=== PATIENT | female | born 1965 | race Caucasian/White ===

== ENCOUNTER 2018-10-05 10:55 | Observation (INO) ==
[2018-10-05] MEDS ORDERED: ASPIRIN CHEW 324 MG PO STA (11:51)
[2018-10-05 11:56] LABS: Basophils # (auto) 0.04 K/uL (0-0.2); Basophils % (auto) 0.5 %; Eosinophils # (auto) 0.04 K/uL (0-0.5); Eosinophils % (auto) 0.5 %; Hematocrit (blood only) 40.3 % (37-47); Hemoglobin 13.8 g/dL (12.0-16.0); Immature Granulocytes # (auto) 0.02 K/uL (0.00-0.02); Immature Granulocytes % (auto) 0.2 %; Lymphocytes # (auto) 1.49 K/uL (1.2-3.4); Lymphocytes % (auto) 18.3 %; Mean Corpuscular Hgb Conc 34.2 g/dL (32-36); Mean Corpuscular Volume 97.6 fL (80-100); Monocytes # (auto) 0.51 K/uL (0.11-0.59); Monocytes % (auto) 6.3 %; Neutrophils # (auto) 6.02 K/uL (1.4-6.5); Neutrophils % (auto) 74.2 %; Platelet Count 329 K/uL (130-400); RDW Coefficient of Variation 13.4 % (11.5-14.5); RDW Standard Deviation 47.9 fL (36.4-46.3); Red Blood Count 4.13 M/uL (4.2-5.4); White Blood Count 8.12 K/uL (4.8-10.8)
[2018-10-05 12:08] LABS: Alanine Aminotransferase 22 U/L (12-78); Albumin Level 4.1 gm/dl (3.4-5.0); Aspartate Aminotransferase 22 U/L (15-37); BUN Creatinine Ratio 9.5 (10-20); Blood Urea Nitrogen 8 mg/dl (7-18); Calcium 8.9 mg/dl (8.5-10.1); Carbon Dioxide 23 mmol/L (21-32); Chloride 111 mmol/L (98-107); Est GFR (African American) 95.4; Est GFR (Non-African American) 82.3; Glucose 158 mg/dl (70-99); Partial Thromboplastin Ratio 0.8; Partial Thromboplastin Time 22.2 Seconds (21.0-31.0); Potassium 3.5 mmol/L (3.5-5.1); Prothrombin Time 10.5 Seconds (9.0-12.0); Sodium 143 mmol/L (136-145)
--- NOTE | 2018-10-05 12:08 | XRay Report ---
SINGLE VIEW CHEST CLINICAL HISTORY: Dyspnea. FINDINGS: 2 AP, portable, upright chest radiographs are obtained. No prior studies are available for comparison at the time of dictation. The examination is degraded by portable technique and patient ro tation. The cardiomediastinal silhouette is unremarkable. The lungs and pleural spaces are clear. No pneumothorax is seen. The bony thorax is grossly intact. IMPRESSION: No active disease in the chest. Electronically signed by: Ganesh Fox M.D. 10/05/2018 12:06 PM
[2018-10-05 12:13] LABS: Albumin Globulin Ratio 1.2 (0.9-2); Alkaline Phosphatase 44 U/L (45-117); Globulin 3.4 gm/dl (2.5-4.0); Total Protein 7.5 gm/dl (6.4-8.2); Troponin I < 0.015 ng/ml (0-0.045)
[2018-10-05 12:55] LABS: D Dimer < 190 ug/L FEU (0-500)
--- NOTE | 2018-10-05 15:18 | History & Physical Report ---
Date of Service October 05, 2018 Assessment & Plan (1) Shortness of breath: (2) Chest pressure: This is a 53yo F with a PMH of atrial arrhythmia and tobacco use who presents after an episode of shortness of breath and chest pressure earlier today. -R/o ACS; risk factors include tobacco use -Most likely anxiety induced, also with underlying atrial arrhythmia -Initial troponin negative -EKG-history of non-specific ST changes in inferior leads, T wave inversion in lateral leads (per old OSH records). No new findings in today's EKG -CXR-no acute process -Trend serial cardiac enzymes -Check 2D echo -Repeat EKG in am (3) Atrial arrhythmia: Normal sinus rhythm on EKG now -Monitor on telemetry -Recommended following up with transfer car operator Dr. Segundo for out-patient cardiac monitoring (4) Tobacco use: Advised smoking cessation DVT Ppx: Early ambulation, elvira schwab Code status: FULL PCP: Yury Dispo: Observation med/tele. Plan to return home once medically stable. Patient seen in collaboration with Dr. Patel. Please see addendum. History of Present Illness Chief Complaint: shortness of breath, chest pressure Primary Care Provider: Abdelrahman Cotton MD This is a 53yo F with a PMH of atrial arrhythmia and tobacco use who presents after an episode of shortness of breath and chest pressure earlier today. 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 [place] anxious and like she was going to pass out, so she pulled over car. [place] like heart was pounding. Episode continued for 40 minutes. Has experienced episodes like this in the past but not to this severity or duration. Denies history of panic attacks but has taken ativan in the past for anxiety. Denies any diaphoresis, nausea, abdominal pain or syncope. Works out daily and had used Metatical machine this morning without issue. Has history of atrial arrhythma that was diagnosed years ago. Was seen at the time by an print washer transfer car operator in the past and was told she has an atrial arryythmia-not A Fib or WPW. Established care with Dr. Segundo transfer car operator in [place] a few years ago and had a normal echo. Was told that the next step was wearing a pvc monitor for 2 weeks but has not done this yet. No history of CAD, PR or DVT/PE. Smokes 4 cigarettes a day. No fever, chills, dizziness, nausea, vomiting, dysuria, diarrhea or lower extremity edema. Allergies Allergy/AdvReac Type Severity Reaction Status Date / Time mold AdvReac Difficulty Unverified 10/05/18 12:18 Breathing Home Medications Home Medications Medication Instructions Recorded Confirmed Type multivitamin 1 cap PO QAM 10/05/18 10/05/18 History Past Med/Surg History Medical History Tobacco use (Chronic) Atrial arrhythmia (Chronic) Surgical History History of ureter repair (Resolved) Family History Father Atrial fibrillation Social History Preferred Language: German Current Living Situation: Family current occupational status: employed Feels Safe at Home: Yes Smoking Status: Light tobacco smoker Hx Alcohol Use: Yes Review of Systems All systems reviewed & are unremarkable except as noted in HPI & below Physical Exam Vital Signs (Past 24 Hours): Last Vital Signs Pulse 65 10/05/18 15:17 Resp 16 10/05/18 15:17 BP 111/72 10/05/18 15:17 Pulse Ox 99 10/05/18 15:17 Physical Exam: General Appearance: WD/WN, no apparent distress, thin, + anxious Head: normocephalic, atraumatic Eyes: normal inspection, PERRL, EOMI ENT: hearing grossly normal, pharynx normal (moist mucous membranes) Neck: supple, no JVD, no adenopathy Respiratory/Chest: lungs clear to auscultation. No wheezes, rales or rhonci. No respiratory distress or accessory muscle use Cardiovascular: regular rate, rhythm, no murmur, normal peripheral pulses Abdomen/GI: normal bowel sounds, soft, non-tender to palpation Extremities/Musculoskelatal: normal inspection, no calf tenderness, normal capillary refill, no pedal edema Neurologic/Psych: alert, normal mood/affect, oriented x 3 Skin: normal color, warm/dry Results & Data Laboratory Results Short CBC 10/05/18 Range/Units 11:40 WBC 8.12 (4.8-10.8) K/uL Hgb 13.8 (12.0-16.0) g/dL Hct 40.3 (37-47) % Plt Count 329 (130-400) K/uL BMP 10/05/18 11:40 Sodium 143 Potassium 3.5 Chloride 111 H Carbon Dioxide 23 BUN 8 Creatinine 0.82 Glucose 158 H Calcium 8.9 Cardiac Enzymes 10/05/18 Range/Units 11:40 Troponin I < 0.015 (0-0.045) ng/ml Liver Function 10/05/18 Range/Units 11:40 Total Bilirubin 1.0 (0.2-1) mg/dl AST 22 (15-37) U/L ALT 22 (12-78) U/L Alkaline Phosphatase 44 L (45-117) U/L Albumin 4.1 (3.4-5.0) gm/dl Diagnostic Findings CXR: IMPRESSION: No active disease in the chest. Supervising Physician Co-Signing Physician Notes I have seen and examined the patient with physician registrar assistant and agree with the assessment and plan as above and would like to comment that workup to date in the ED and telemetry downs has not revealed cause of earlier described symptoms of chest pressure, shortness of breath, and sensation of palpitations. Currently in normal sinus rhythm. Plans have been made to continue telemetry monitoring and serial troponins. will have echocardiogram while in the hospital in addition to plans and medical issues as documented by physician registrar assistant, will also check TSH and give potassium 40 meq as potassium level is 3.5 which is low normal reference range On physical Exam General: no acute distress, thin woman Lungs: breathing on room air, no wheezing Heart: regular rate Abdomen: soft, nontender, positive bowel sounds Extremities: no edema
[2018-10-05] MEDS ORDERED: NITROGLYCERIN SL 0.4 MG/TAB TAB SL PRN (16:34)
[2018-10-05] MEDS ORDERED: POLYETHYLENE (MIRALAX) 17 GM PACK PO PRN (16:34)
[2018-10-05] MEDS ORDERED: ACETAMINOPHEN 325 MG TAB PO PRN (16:34)
[2018-10-05] MEDS ORDERED: ONDANSETRON INJ 2 MG/ML 2 ML VIAL IV PRN (16:34)
--- NOTE | 2018-10-05 16:47 | Emergency Department Note ---
Entered by Josef Lehman acting as a scribe for Davey Ng DO History of Present Illness General Chief complaint: Shortness of Breath/Dyspnea Stated complaint: CAN'T BREATH Source: patient History of Present Illness Provider complaint: shortness of breath Onset (ago): week(s) 1 Location: chest Severity: similar to prior episodes (4 times in past 18 years) Pain Consistency: + other (waxing and waning) Quality: + other (shortness of breath) Associated symptoms: + denies other symptoms (abdominal pain, diarrhea); no chest pain and no nausea/vomiting The patient is a 53 year old female who presents to the Emergency Room with complaints of shortness of breath that started about a week ago. The patient reports that his symptoms wax and wane. She states that she was able to use the elliptical today with no problem, but then states when she took her son onto campus she was unable to catch her breath and felt as though she was going to pass out. She further reports tingling in both of her hands. She denies any chest pain, nausea, vomiting, diarrhea, or abdominal pain. The patient reports a history of an arrhythmia. She denies a history of afib. She reports that this has happened approximately 4 times in the past 18 years. She denies having high blood pressure or diabetes. The patient admits to using tobacco. Home Medications Home Medications Medication Instructions Recorded Confirmed Type multivitamin 1 cap PO QAM 10/05/18 10/05/18 History Allergies Allergy/AdvReac Type Severity Reaction Status Date / Time mold AdvReac Difficulty Unverified 10/05/18 12:18 Breathing Past Med/Surg History Medical History Tobacco use (Chronic) Atrial arrhythmia (Chronic) Surgical History History of ureter repair (Resolved) Family History Father Atrial fibrillation Social History Preferred Language: Armenian Current Living Situation: Family current occupational status: employed Feels Safe at Home: Yes Smoking Status: Light tobacco smoker Hx Alcohol Use: Yes Review of Systems See HPI for pertinent positives & negatives. and A total of 10 systems reviewed and were otherwise negative Physical Exam Vital Signs Vital Signs - 24 hr 10/05/18 10:58 10/05/18 11:21 10/05/18 11:43 Temperature Temperature Source Sepsis Recent Fever Within 48 Hours No Sepsis New/Unexplained Change in Mental Status No Sepsis Action Taken by Nursing No Action Required Pulse Rate 110 H 95 H Pulse Rate [Finger] 98 H Pulse Rhythm Regular Pulse Rhythm [Finger] Pulse Strength Normal Pulse Strength [Finger] Respiratory Rate 36 H Respiratory Effort / Characteristics Non-Labored Spontaneous Respiratory Depth Normal Respiratory Pattern Blood Pressure 127/69 Blood Pressure [Left Arm] Blood Pressure [Right Arm] 138/90 Blood Pressure Mean 88 Blood Pressure Mean [Left Arm] Blood Pressure Mean [Right Arm] 106 Blood Pressure Position Sitting Blood Pressure Position [Left Arm] Pulse Oximetry 100 100 100 Oxygen Delivery Method Room Air Room Air Room Air 10/05/18 12:23 10/05/18 15:17 10/05/18 15:58 Temperature Temperature Source Sepsis Recent Fever Within 48 Hours Sepsis New/Unexplained Change in Mental Status Sepsis Action Taken by Nursing Pulse Rate Pulse Rate [Finger] 85 65 65 Pulse Rhythm Pulse Rhythm [Finger] Pulse Strength Pulse Strength [Finger] Respiratory Rate 20 16 17 Respiratory Effort / Characteristics Respiratory Depth Respiratory Pattern Blood Pressure Blood Pressure [Left Arm] Blood Pressure [Right Arm] 111/72 115/70 Blood Pressure Mean Blood Pressure Mean [Left Arm] Blood Pressure Mean [Right Arm] 85 85 Blood Pressure Position Blood Pressure Position [Left Arm] Pulse Oximetry 100 99 99 Oxygen Delivery Method Room Air Room Air Room Air 10/05/18 16:38 Temperature 36.6 C Temperature Source Oral Sepsis Recent Fever Within 48 Hours Sepsis New/Unexplained Change in Mental Status Sepsis Action Taken by Nursing Pulse Rate Pulse Rate [Finger] 68 Pulse Rhythm Pulse Rhythm [Finger] Regular Pulse Strength Pulse Strength [Finger] Normal Respiratory Rate 18 Respiratory Effort / Characteristics Non-Labored Respiratory Depth Normal Respiratory Pattern Regular Blood Pressure Blood Pressure [Left Arm] 136/86 Blood Pressure [Right Arm] Blood Pressure Mean Blood Pressure Mean [Left Arm] 102 Blood Pressure Mean [Right Arm] Blood Pressure Position Blood Pressure Position [Left Arm] Lying Pulse Oximetry 98 Oxygen Delivery Method Room Air GENERAL: Sitting up in bed, alert, anxious and disheveled appearing, well nourished, no distress, non-toxic EYE EXAM: normal conjunctiva. PERRL and EOM's grossly intact. OROPHARYNX: no exudate, no erythema, lips, buccal mucosa, and tongue normal and mucous membranes are moist NECK: supple, no nuchal rigidity, no adenopathy, non-tender LUNGS: Clear to auscultation. Normal chest wall mechanics HEART: no murmurs, S1 normal and S2 normal ABDOMEN: abdomen soft, non-tender, normo-active bowel, sounds, no masses, no rebound or guarding. BACK: Back is symmetrical on inspection and there is no deformity, no midline tenderness, no CVA tenderness. SKIN: no rashes and no bruising UPPER EXTREMITIES: upper extremities are grossly normal. LOWER EXTREMITIES: No pitting edema. Calves equal bilaterally. NEURO EXAM: Normal sensorium, cranial nerves II-XII grossly intact, normal speech, no gross weakness of arms, no gross weakness of legs. Course ED COURSE: Vital signs were reviewed and showed the patient is normotensive. The patients medical record was reviewed The above diagnostic studies were performed and reviewed. ED treatments and interventions as stated above. 1140: The patient was evaluated in room C2A. A complete history and physical examination was performed. 1347: I updated the patient. 1354: I reviewed the patient's case with Keyla Ruth PA-C. She will evaluate the patient for further management. 1400: Upon reevaluation, the patient is resting comfortably. I discussed my findings with the patient and she understands and agrees with the treatment plan. Based on the patients age, coexisting illnesses, exam and lab findings the decision to treat as an inpatient was made. The patient remained stable while under my care. The patient will be evaluated for further management. Consultations Consultation #1: Keyla Ruth PA-C Time: 13:54 Administered Medications Discontinued Medications Aspirin (Aspirin) 324 mg PO NOW STA Stop: 10/05/18 11:52 Last Admin: 10/05/18 12:22 Dose: 324 mg Documented by: [id number] Medical Decision Making Differential Diagnosis Differential diagnosis: Etiologies such as infections, reactive airway disease, pneumonia, pneumothorax, COPD, CHF, cardiac ischemia, pulmonary embolism, musculoskeletal, gastrointestinal, as well as others were entertained. Medical Records Attestation: I reviewed the patient's medical records. Home Medications Current Medication List: was personally reviewed by me Laboratory Data Attestation: I reviewed the patient's lab results. Result diagrams: 10/05/18 11:40 10/05/18 11:40 Lab Results 10/05/18 10/05/18 10/05/18 Range/Units 11:40 11:40 11:40 WBC 8.12 (4.8-10.8) K/uL RBC 4.13 L (4.2-5.4) M/uL Hgb 13.8 (12.0-16.0) g/dL Hct 40.3 (37-47) % MCV 97.6 (80-100) fL MCH 33.4 (25-34) pg MCHC 34.2 (32-36) g/dL RDW Std Deviation 47.9 H (36.4-46.3) fL RDW Coeff of Devan 13.4 (11.5-14.5) % Plt Count 329 (130-400) K/uL MPV 10.0 (7.4-10.4) fL Immature Gran % (Auto) 0.2 % Neut % (Auto) 74.2 % Lymph % (Auto) 18.3 % Swain % (Auto) 6.3 % Eos % (Auto) 0.5 % Baso % (Auto) 0.5 % Immature Gran # (Auto) 0.02 (0.00-0.02) K/uL Neut # (Auto) 6.02 (1.4-6.5) K/uL Lymph # (Auto) 1.49 (1.2-3.4) K/uL Swain # (Auto) 0.51 (0.11-0.59) K/uL Eos # (Auto) 0.04 (0-0.5) K/uL Baso # (Auto) 0.04 (0-0.2) K/uL PT 10.5 (9.0-12.0) Seconds INR 1.0 (0.9-1.1) APTT 22.2 (21.0-31.0) Seconds PTT Ratio 0.8 D-Dimer (0-500) ug/L FEU Sodium 143 (136-145) mmol/L Potassium 3.5 (3.5-5.1) mmol/L Chloride 111 H (98-107) mmol/L Carbon Dioxide 23 (21-32) mmol/L Anion Gap 10.0 (3-11) BUN 8 (7-18) mg/dl Creatinine 0.82 (0.6-1.2) mg/dl Est Cr Clr Drug Dosing Not Reportable Est GFR ( Amer) 95.4 Est GFR (Non-Af Amer) 82.3 BUN/Creatinine Ratio 9.5 L (10-20) Glucose 158 H (70-99) mg/dl Calcium 8.9 (8.5-10.1) mg/dl Magnesium (1.8-2.4) mg/dl Total Bilirubin 1.0 (0.2-1) mg/dl AST 22 (15-37) U/L ALT 22 (12-78) U/L Alkaline Phosphatase 44 L (45-117) U/L Troponin I < 0.015 (0-0.045) ng/ml Total Protein 7.5 (6.4-8.2) gm/dl Albumin 4.1 (3.4-5.0) gm/dl Globulin 3.4 (2.5-4.0) gm/dl Albumin/Globulin Ratio 1.2 (0.9-2) 10/05/18 10/05/18 Range/Units 11:40 11:40 WBC (4.8-10.8) K/uL RBC (4.2-5.4) M/uL Hgb (12.0-16.0) g/dL Hct (37-47) % MCV (80-100) fL MCH (25-34) pg MCHC (32-36) g/dL RDW Std Deviation (36.4-46.3) fL RDW Coeff of Devan (11.5-14.5) % Plt Count (130-400) K/uL MPV (7.4-10.4) fL Immature Gran % (Auto) % Neut % (Auto) % Lymph % (Auto) % Swain % (Auto) % Eos % (Auto) % Baso % (Auto) % Immature Gran # (Auto) (0.00-0.02) K/uL Neut # (Auto) (1.4-6.5) K/uL Lymph # (Auto) (1.2-3.4) K/uL Swain # (Auto) (0.11-0.59) K/uL Eos # (Auto) (0-0.5) K/uL Baso # (Auto) (0-0.2) K/uL PT (9.0-12.0) Seconds INR (0.9-1.1) APTT (21.0-31.0) Seconds PTT Ratio D-Dimer < 190 (0-500) ug/L FEU Sodium (136-145) mmol/L Potassium (3.5-5.1) mmol/L Chloride (98-107) mmol/L Carbon Dioxide (21-32) mmol/L Anion Gap (3-11) BUN (7-18) mg/dl Creatinine (0.6-1.2) mg/dl Est Cr Clr Drug Dosing Est GFR ( Amer) Est GFR (Non-Af Amer) BUN/Creatinine Ratio (10-20) Glucose (70-99) mg/dl Calcium (8.5-10.1) mg/dl Magnesium 2.2 (1.8-2.4) mg/dl Total Bilirubin (0.2-1) mg/dl AST (15-37) U/L ALT (12-78) U/L Alkaline Phosphatase (45-117) U/L Troponin I (0-0.045) ng/ml Total Protein (6.4-8.2) gm/dl Albumin (3.4-5.0) gm/dl Globulin (2.5-4.0) gm/dl Albumin/Globulin Ratio (0.9-2) Imaging Data Radiologist's Impression: Radiology results as stated below per my review and the radiologist's interpretation: SINGLE VIEW CHEST CLINICAL HISTORY: Dyspnea. FINDINGS: 2 AP, portable, upright chest radiographs are obtained. No prior studies are available for comparison at the time of dictation. The examination is degraded by portable technique and patient rotation. The cardiomediastinal silhouette is unremarkable. The lungs and pleural spaces are clear. No pneumothorax is seen. The bony thorax is grossly intact. IMPRESSION: No active disease in the chest. Electronically signed by: Ganesh Fox M.D. 10/05/2018 12:06 PM ECG Data Attestation: I personally reviewed and interpreted this ECG as follows: Indication: SOB/dyspnea Rate (beats per minute): 88 Rhythm: sinus rhythm Findings: + other (normal axis, ME interval), + Q waves (septal Q waves in lateral short leads) and + ST depression (in inferior leads) Blood Pressure Blood Pressure Findings: Normal blood pressure Blood Pressure Disposition: did not require urgent referral MDM Narrative Patient is a 53-year-old female who presents the ER for shortness of breath times 1 week which is been getting worse with exertion. She also complains of tingling in bilateral hands. There is no focal deficit. She does not have any chest pain. She does have a history of a previous cardiac arrhythmia but is unsure to which it is. I do question WPW with a short ME but patient notes that is not the case and it is neither A. fib or a flutter. IV was established and labs were obtained and shows no significant leukocytosis or anemia. INR is unremarkable. D-dimer was negative. BMP was unremarkable along with bilirubin LFTs and troponin. EKG did have slightly new findings with worsening ST wave changes in the carrier leads along with T wave flattening in the lateral leads in comparison to her previous EKG which is obtained from her scale adjuster. Ches t x-ray was unremarkable. Patient was given fluids. She was updated bedside. Patient was also given oral aspirin. She was updated and discussed with hospitalist for further evaluation. She was updated bedside as well. Of note she was extremely anxious. Impression & Plan Shortness of breath, Acute electrocardiogram changes Discharge Plan Visit Data *Final* Discharge Date/Time: 10/05/18 16:14 Chief Complaint: Shortness of Breath/Dyspnea Stated Complaint: CAN'T BREATH ED Provider: Davey Ng Discharge Problem: Shortness of breath, Acute electrocardiogram changes Patient Disposition: Admitted As Inpatient Discharge Instructions Interventions: ED Discharge Assessment Last Done: 10/05/18 16:14 The scribe's documentation has been prepared under my direction and personally reviewed by me in its entirety. I confirm that the note above accurately reflects all work, treatment, procedures, and medical decision making performed by me.
[2018-10-05] MEDS ORDERED: POTASSIUM CHLORIDE 20 MEQ TABCR PO STA (17:15)
[2018-10-05 18:35] LABS: Troponin I < 0.015 ng/ml (0-0.045)
[2018-10-06] MEDS ORDERED: ALBUT/IPRATROP 3MG/0.5MG NEB 3 ML VIAL NEB PRN (05:11)
[2018-10-06] MEDS ORDERED: LORazepam 0.25 MG/0.5 ML VIAL IV PRN (05:14)
[2018-10-06 06:03] LABS: Hematocrit (blood only) 37.8 % (37-47); Hemoglobin 12.8 g/dL (12.0-16.0); Mean Corpuscular Hgb Conc 33.9 g/dL (32-36); Mean Platelet Volume 9.9 fL (7.4-10.4); Platelet Count 275 K/uL (130-400); RDW Coefficient of Variation 13.6 % (11.5-14.5); RDW Standard Deviation 49.4 fL (36.4-46.3); Red Blood Count 3.82 M/uL (4.2-5.4); White Blood Count 6.15 K/uL (4.8-10.8)
[2018-10-06 06:32] LABS: BUN Creatinine Ratio 13.9 (10-20); Calcium 8.3 mg/dl (8.5-10.1); Creatinine Clr Calc Pharmacy 86.7 ml/min; Est GFR (African American) 117.1; Est GFR (Non-African American) 101.1
[2018-10-06 07:22] LABS: Estimated Average Glucose 100 mg/dl; Hemoglobin A1C 5.1 % (4.5-5.6)
[2018-10-06] MEDS ORDERED: MULTIVITAMIN TAB PO SCH (09:00)
[2018-10-06] MEDS ORDERED: ACETAMINOPHEN 325 MG TAB PO PRN (09:37)
[2018-10-06] MEDS ORDERED: SODIUM CHLORIDE 0.9% 1000ML 1,000 ML IV SCH (09:45)
--- NOTE | 2018-10-06 10:42 | XRay Report ---
XR chest 1V portable CLINICAL HISTORY: Shortness of breath. COMPARISON STUDY: Chest radiograph October 05, 2018. FINDINGS: Lung volumes are normal. There is no pneumothorax or pleural effusion. There is no consolid ation. Cardiac size is normal. Mediastinal contours are normal. There is no evidence for pulmonary ed wing. IMPRESSION: No acute cardiopulmonary findings. Electronically signed by: Sony Campbell M.D. 10/06/2018 10:41 AM
[2018-10-06] MEDS ORDERED: LORazepam 0.5 MG TAB PO PRN (16:26)
--- NOTE | 2018-10-06 17:39 | Hospitalist Progress Note ---
Date of Service October 06, 2018 Assessment & Plan (1) Shortness of breath: Initial hospital presentation complaint of chest pressure with shortness of breath had one episode of shortness of breath while in the hospital around 4:30 AM. bradycardia on telemetry noted at night (2) Chest pressure: patient had telemetry monitoring in the hospital that noted bradycardia sometimes as low as the 40s, troponins negative, resting echocardiogram with normal Ejection Fraction of 55 to 60%. Patient had stress test for which the cardiology doctor reports there was a short run of supraventricular tachycardia briefly on initial stress which resolved and then some bigeminy post test but the stress test was otherwise normal (3) Atrial arrhythmia: History of reported atrial arrhythmia patient had telemetry monitoring in the hospital that noted bradycardia sometimes as low as the 40s, troponins negative, resting echocardiogram with normal Ejection Fraction of 55 to 60%. Patient had stress test for which the car diology doctor reports there was a short run of supraventricular tachycardia briefly on initial stress which resolved and then some bigeminy post test but the stress test was otherwise normal Patient was evaluated by cardiology service, Dr.Sheldon Solis (who also has outpatient clinics [facility] at [address] [place] [address] ) is trying to schedule a 14 day ZIO monitor and also requested that patient be scheduled for Cardiology Electrophysiology referral with Dr. Angeli Ogden on 10/28/18 Anxiety Patient express concerns that she becomes more anxious with anxiety when feeling previously reported chest and breathing symptoms [place] PDMP was checked an patient last prescription of Lorazepam filled in 12/18/2017 and does not have any other active outpatient controlled substances Patient may take prescription Lorazepam 0.5 mg every 8 hours as needed for anxiety (12 tablets prescribed) Follow up with primary medical doctor (4) Tobacco use: Advised smoking cessation Discharge Diagnosis shortness of breath and chest pressure evaluation, bradycardia, Anxiety Subjective Patient had episode of shortness of breath at 4:30 Am. telemetry of bradycardia in the 40s Patient has stress test Patient denies current chest discomfort or shortness of breath. Denies abdominal pain. no vomiting Physical Exam Vital Signs (Past 24 Hours): Last Vital Signs Temp 36.6 C 10/06/18 16:00 Pulse 63 10/06/18 16:00 Resp 21 10/06/18 16:00 BP 114/73 10/06/18 16:00 Pulse Ox 98 10/06/18 16:00 Constitutional: + thin Eyes: PERRL, conjunctivae normal, anicteric sclerae EOM intact bilaterally ENMT: external ear and nose normal, oropharynx normal Neck: trachea midline, no thyromegaly Respiratory: normal respiratory effort, lungs clear to auscultation Cardiovascular: Rate/Rhythm: regular rhythm and + bradycardic Gastrointestinal (Abdomen): normal bowel sounds, soft, nontender, no hepatosplenomegaly Musculoskeletal: no cyanosis or clubbing, extremities motor strength 5/5 Head/Neck/Chest: normocephalic and head atraumatic Neurologic: PERRL, EOMI, accommodation nl, no face palsy, no dysarthria CN's II-XI intact bilaterally Psychiatric: A+Ox3, euthymic affect
--- NOTE | 2018-10-06 17:49 | Discharge Summary ---
Date of Service October 06, 2018 Admission HPI Per Admitting Provider This is a 53yo F with a PMH of atrial arrhythmia and tobacco use who presents after an episode of shortness of breath and chest pressure earlier today. 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 Rey[place] anxious and like she was going to pass out, so she pulled over car. Reydon like heart was pounding. Episode continued for 40 minutes. Has experienced episodes like this in the past but not to this severity or duration. Denies history of panic attacks but has taken ativan in the past for anxiety. Denies any diaphoresis, nausea, abdominal pain or syncope. Works out daily and had used Elliptical machine this morning without issue. Has history of atrial arrhythma that was diagnosed years ago. Was seen at the time by an elementary school reading teacher equalizing saw operator in the past and was told she has an atrial arryythmia-not A Fib or WPW. Established care with Dr. Segundo equalizing saw operator in [place] a few years ago and had a normal echo. Was told that the next step was wearing a telegraph equipment maintainer for 2 weeks but has not done this yet. No history of CAD, NC or DVT/PE. Smokes 4 cigarettes a day. No fever, chills, dizziness, nausea, vomiting, dysuria, diarrhea or lower extremity edema. Admission Exam Per Admitting Provider General Appearance: WD/WN, no apparent distress, thin, + anxious Head: normocephalic, atraumatic Eyes: normal inspection, PERRL, EOMI ENT: hearing grossly normal, pharynx normal (moist mucous membranes) Neck: supple, no JVD, no adenopathy Respiratory/Chest: lungs clear to auscultation. No wheezes, rales or rhonci. No respiratory distress or accessory muscle use Cardiovascular: regular rate, rhythm, no murmur, normal peripheral pulses Abdomen/GI: normal bowel sounds, soft, non-tender to palpation Extremities/Musculoskelatal: normal inspection, no calf tenderness, normal c apillary refill, no pedal edema Neurologic/Psych: alert, normal mood/affect, oriented x 3 Skin: normal color, warm/dry Principal Diagnosis shortness of breath and chest pressure evaluation, bradycardia, Anxiety Discharge Exam Constitutional + thin Eyes PERRL, conjunctivae normal, anicteric sclerae EOM intact bilaterally ENMT external ear and nose normal, oropharynx normal Neck trachea midline, no thyromegaly Respiratory normal respiratory effort, lungs clear to auscultation Cardiovascular Rate/Rhythm: regular rhythm and + bradycardic Gastrointestinal (Abdomen) normal bowel sounds, soft, nontender, no hepatosplenomegaly Musculoskeletal no cyanosis or clubbing, extremities motor strength 5/5 Head/Neck/Chest: normocephalic and head atraumatic Neurologic PERRL, EOMI, accommodation nl, no face palsy, no dysarthria CN's II-XI intact bilaterally Psychiatric A+Ox3, euthymic affect Discharge Data Allergies Allergy/AdvReac Type Severity Reaction Status Date / Time mold AdvReac Difficulty Unverified 10/05/18 12:18 Breathing Consultations 10/05/18 13:55 ED Decision to Admit Stat 10/06/18 08:33 Consult Cardiology Routine Hospital Course (1) Shortness of breath: Initial hospital presentation complaint of chest pressure with shortness of breath had one episode of shortness of breath while in the hospital around 4:30 AM. bradycardia on telemetry noted at night (2) Chest pressure: patient had telemetry monitoring in the hospital that noted bradycardia sometimes as low as the 40s, troponins negative, resting echocardiogram with normal Ejection Fraction of 55 to 60%. Patient had stress test for which the cardiology doctor reports there was a short run of supraventricular tachycardia briefly on initial stress which resolved and then some bigeminy post test but the stress test was otherwise normal (3) Atrial arrhythmia: History of reported atrial arrhythmia patient had telemetry monitoring in the hospital that noted bradycardia sometimes as low as the 40s, troponins negative, resting echocardiogram with normal Ejection Fraction of 55 to 60%. Patient had stress test for which the cardiology doctor reports there was a short run of supraventricular tachycardia briefly on initial stress which resolved and then some bigeminy post test but the stress test was otherwise normal Patient was evaluated by cardiology service, Dr.Sheldon Solis (who also has outpatient clinics [facility] at [address], [place] [address] ) is trying to schedule a 14 day ZIO monitor and also requested that patient be scheduled for Cardiology Electrophysiology referral with Dr. Angeli Ogden on 10/28/18 Anxiety Patient express concerns that she becomes more anxious with anxiety when feeling previously reported chest and breathing symptoms [place] PDMP was checked an patient last prescription of Lorazepam filled in 12/18/2017 and does not have any other active outpatient controlled substances Patient may take prescription Lorazepam 0.5 mg every 8 hours as needed for anxiety (12 tablets prescribed) Follow up with primary medical doctor (4) Tobacco use: Advised smoking cessation Discharge Diagnosis shortness of breath and chest pressure evaluation, bradycardia, Anxiety Total Time Total Time Spent Total Time Spent (In Minutes): 40 minutes Total Time Includes: Examination of the Patient, Discharge Planning and Medication Reconciliation Discharge Plan Discharge Items Patient Disposition: Home - Self-Care Reason For Visit: SOB,CHEST PRESSURE Discharge Diagnosis: shortness of breath and chest pressure evaluation, bradycardia, Anxiety Condition: Good Discharge Goals: Decrease discomfort Activity: Resume your previous activity Non-emergency contact: Primary Care Provider and Specialist Call non-emergency contact if: you have any medication questions Follow-up/Referrals: Abdelrahman Cotton MD [Primary Care Provider] - Diet: Regular Addtl Provider Instructions: Patient to be discharged to home patient had telemetry monitoring in the hospital that noted bardycardia sometimes as low as the 40s, troponins negative, resting echocardiogram with normal Ejection Fraction of 55 to 60%. Patient had stress test for which the cardiology doctor reports there was a short run of supraventricular tachycardia briefly on initial stress which resolved and then some bigeminy post test but the stress test was otherwise normal Patient was evaluated by cardiology service, Dr.Sheldon Solis (who also has outpatient clinics [facility] at [address] [place] [address], [place] [address] ) is trying to schedule a 14 day ZIO monitor and also requested that patient be scheduled for Cardiology Electrophysiology referral with Dr. Angeli Ogden on 10/28/18 [place] PDMP was checked an patient last prescription of Lorazepam filled in 12/18/2017 and does not have any other active outpatient controlled substances Patient may take prescription Lorazepam 0.5 mg every 8 hours as needed for anxiety (12 tablets prescribed) Prescriptions: New lorazepam 0.5 mg Tablet 0.5 mg PO Q8H PRN (Reason: anxiety) 4 Days Qty: 12 RF: 0 Continued multivitamin Capsule 1 cap PO QAM RF: 0 Stand-Alone Forms: My [facility] Discharge Orders: Discharge Order (Routine); Ordered 10/06/18 Ordered By: Mitchell Patel Admission Data Admit Date/Time: 10/05/18 15:32 Attending Provider: Mitchell Patel Admit Provider: Mitchell Patel Primary Care Provider: Abdelrahman Cotton Other Providers: Mitchell Patel ; Ye Solis Service: Telemetry Medical
--- NOTE | 2018-10-06 19:27 | Consultation Report ---
DATE OF CONSULTATION: 10/06/2018 REFERRING PHYSICIAN: Dr. Patel. PRIMARY CARE PHYSICIAN: Dr. Abdelrahman Cotton, though patient not recently seen. HISTORY OF PRESENT ILLNESS: The patient is a 53-year-old female who carries a history of past tachypalpitations of prior EP evaluation in the remote past who yesterday while driving developed symptoms of heart pounding in her chest with mild lightheadedness. She was able to drive a distance, but pulled over until symptoms resolved, presented to the Emergency Room. She had been noticing more frequent episodes but usually prior atrial tachycardia occurred on a once per year basis. She and previously evaluated by EP and underwent an EP study approximately 15 years past. Has seen an drawer in stitch bonding machine 2-3 years ago without return. She denies fevers, chills or productive cough. Notes no history of angina or congestive heart failure. She is physically active. Uses an elliptical machine each morning. Has been aware of some increasing dyspnea and sense of sudden weakness post-exercise. Notes no acute weight loss or gain. Appetite is only fair. Notes no sleep disruption. Notes no bleeding difficulties, melena, hematochezia, dysuria or hematuria. ALLERGIES: No drug allergies. MEDICATIONS: At home were multivitamin only. PAST SURGICAL HISTORY: Notable for prior ureteral repair at age 17. FAMILY HISTORY: Notable for atrial fibrillation in father. SOCIAL HISTORY: The patient resides in [place] but works in [employer]. She had been a previously nonsmoker, but occasionally smokes a cigarette intermittently, drinks approximately 2 Coors Lite per day per patient. PHYSICAL EXAMINATION: GENERAL: The patient is a thin, age appropriate female, currently in no acute distress. VITAL SIGNS: Reveal heart rate of 60, blood pressure is 109/65. HEENT: Normocephalic and atraumatic. Nares without discharge. Throat was clear. NECK: Supple without thyromegaly, lymphadenopathy, JVD. There are no carotid bruits. LUNGS: Clear to auscultation with good aeration to both bases. CARDIOVASCULAR: Regular with normal S1, S2, no audible murmur, gallop or rub. PMI is nondisplaced. ABDOMEN: Soft, thin, nontender. There is no palpable hepatosplenomegaly. There is no hepatojugular reflux. EXTREMITIES: Without cyanosis or clubbing. There is no peripheral edema. There are intact distal pulses. There is no brachial femoral delay. NEUROLOGIC: The patient is alert and answering questions appropriately. LABORATORY DATA: White cell count 6.1, hemoglobin is 12.8, hematocrit 37.8, platelet count 275. Differential is normal. Chest x-ray demonstrates a normal size cardiac silhouette, no infiltrate or edema. Sodium is 140, potassium is 4.0, chloride is 111, bicarbonate 25, BUN is 9, creatinine 0.67, glucose is 93, hemoglobin A1c was 5.1. Troponins serially x4 are nondetectable. Cholesterol is 179 with an LDL of 89 and HDL of 72. TSH is 0.92. EKG demonstrates sinus rhythm with short IL interval. QT corrected normal this morning at 416. Telemetry overnight reveals sinus and sinus bradycardia with occasional competing ectopic atrial rhythm. Echocardiogram demonstrates normal left ventricular size and function, mild sclerotic changes of the right coronary cusp of the aortic valve, otherwise normal valvular structures. IMPRESSION: 53-year-old female who carries a history of abnormal EKG with short IL interval on current study. Past EP evaluation per patient in the remote past has noted sensations of intermittent tachypalpitations usually on a yearly basis but no more frequent with recent exacerbation with exertion as well as yesterday while driving. RECOMMENDATIONS: Given her recent exertional relationship, stress echocardiography will be ordered. This will assess heart rate and response to exercise as well as assess for stress induced arrhythmias or wall motion abnormalities. The patient's resting bradycardia precludes use of medical therapies. Will likely place an event monitor on discharge and follow up with EP. Further recommendations pending above testing.
== END 2018-10-06 17:55 | disposition home or self-care (01) ==
LOC: 2N 10:55 → ED 10:55 → 2N 16:14